=== PATIENT | female | born 1985 | race Caucasian/White ===

== ENCOUNTER 2021-04-16 00:46 | Inpatient (IN) | payer OTHER ==
[~2021-04-16 00:46] MED LIST: BENTYL10 MG PO; DICLOFENAC SODI75 MG PO; METRONIDAZOLE500 MG PO; PEPCID AC20 MG PO; PHENERGAN25 M1 PO; REGLAN10 MG PO
[2021-04-16 01:30] LABS: BASOPHIL 0.2 % (0-2); EOSINOPHIL 0.1 % (0-5); HCT 35.2 % (37.0-47.0); HGB 12.2 g/dl (12.5-16.0); LYMPHOCYTE 5.7 % (15-48); MCH 28.4 pg (25.0-31.0); MCHC 34.7 g/dL (32.0-36.0); MCV 81.9 fL (78.0-100.0); MONOCYTE 12.5 % (0-12); MPV 11.2 fL (6.0-9.5); NRBC 0; PLT 180 K/uL (150-400); RDW 13.5 % (11.5-14.0); WBC 16.8 K/uL (4.0-10.5)
[2021-04-16 01:45] LABS: ALBUMIN 2.8 g/dL (3.4-5.0); BILIRUBIN - TOTAL 1.4 mg/dL (0.2-1.0); BUN/CREAT RATIO (CALC) 9.9 RATIO; CREATININE 0.91 mg/dL (0.51-0.95); POTASSIUM 3.3 mmol/L (3.5-5.1); TOTAL PROTEIN 7.8 g/dL (6.4-8.2)
[2021-04-16 01:47] LABS: LACTIC ACID 1.7 mmol/L (0.4-1.9)
[2021-04-16 02:10] LABS: CORONAVIRUS 2019 SARS-COV-2 NEGATIVE (NEGATIVE); INFLUENZA A NAA NEGATIVE (NEGATIVE)
[2021-04-16 02:11] LABS: BILIRUBIN 1+ mg/dL (NEGATIVE); BLOOD 1+ Ery/uL (NEGATIVE); CLARITY CLOUDY (CLEAR); COLOR YELLOW (YELLOW); GLUCOSE (U) NORMAL (NORMAL); LEUKOCYTES 3+ Leu/uL (NEGATIVE); NITRITE POSITIVE (NEGATIVE); PROTEIN 2+ mg/dL (NEGATIVE); SPECIFIC GRAVITY <=1.005 (1.001-1.030)
[2021-04-16 02:15] LABS: URINARY WBC TNTC
[2021-04-16 02:16] LABS: BACTERIA 4+; SQUAMOUS EPITHELIAL CELLS 20-50
[2021-04-16 03:29] LABS: MAGNESIUM 1.5 mg/dL (1.8-2.4); PHOSPHORUS 2.6 mg/dL (2.6-4.7)
[2021-04-16] MEDS ORDERED: KEPPRA1000 MG PO (03:50)
--- NOTE | 2021-04-17 03:17 | NUR ---
When providing patient care with total bath and linen change noted sores over breasts, on abdomen, and legs with few on arms. Patient stated they are there often. Marino Braxton infomred. Patient placed in contact isolation.
[2021-04-17 06:20] LABS: BASOPHIL 0.3 % (0-2); EOSINOPHIL 0.5 % (0-5); HCT 32.1 % (37.0-47.0); HGB 10.5 g/dl (12.5-16.0); LYMPHOCYTE 8.9 % (15-48); MCH 28.5 pg (25.0-31.0); MCHC 32.7 g/dL (32.0-36.0); MONOCYTE 7.5 % (0-12); MPV 12.5 fL (6.0-9.5); NEUTROPHIL 82.3 % (41-80); NRBC 0; PLT 150 K/uL (150-400); RBC 3.68 M/uL (4.20-5.40); RDW 14.2 % (11.5-14.0); WBC 13.1 K/uL (4.0-10.5)
[2021-04-17 06:38] LABS: MCV 87.2 fL (78.0-100.0)
[2021-04-17 06:43] LABS: ALBUMIN 2.1 g/dL (3.4-5.0); BILIRUBIN - TOTAL 0.8 mg/dL (0.2-1.0); BUN/CREAT RATIO (CALC) 12.6 RATIO; CREATININE 1.03 mg/dL (0.51-0.95); GLOBULIN (CALCULATION) 4.4 g/dL; POTASSIUM 4.7 mmol/L (3.5-5.1); TOTAL PROTEIN 6.5 g/dL (6.4-8.2)
[2021-04-17 08:11] LABS: HBSAG SCREEN Negative (Negative); HEP A AB, IGM Negative (Negative); HEP B CORE AB, IGM Negative (Negative); HEP C VIRUS AB 3.1 (0.0-0.9)
--- NOTE | 2021-04-17 14:37 | NUR ---
PER ROUNDING DR. MORRISON STATED THAT THE PT. NEEDED 2 MORE DAYS [facility] AND WOULD GO HOME TUESDAY OR TUESDAY.
--- NOTE | 2021-04-17 15:28 | NUR ---
MET WITH PT. GAVE HER INFORMATION REGARDING [facility] IN [place]. SHE REQUESTED INFORMATION REGARDING THE PSY[facility]IATRY CLINIC AT IN [place]. GAVE PT. INFORMATION REGARDING THE CLINIC. PT. STATED THAT SHE USE TO GO TO THE [facility] AND WOULD LIKE TO RETURN.
--- NOTE | 2021-04-18 00:42 | NUR ---
0015 Patient has been on the phone with boyfriend during night and arguing, with loud tones and cursing. Repeated asked patient to lower her voice while on the phone. Patient becoming more upset and yelling on phone. Also discussed boyfriend coming to visit now. Informed patient this would not be a good idea related to the time and the emotions that are on display at this time. picking crew supervisor informed of situation and called front outdoor recreation specialist to instruct that patient could have no visitor tonight. picking crew supervisor and security discussed this with patient and also discussed the need to try and no talk with those who are upsetting her and to keep a low tone related to the patients which are in close proximity to room. Patient stated understanding and also said boyfriend was told to stay home and come tomorrow.
[2021-04-18 04:05] LABS: BASOPHIL 0.3 % (0-2); EOSINOPHIL 1.4 % (0-5); HCT 29.2 % (37.0-47.0); HGB 9.7 g/dl (12.5-16.0); LYMPHOCYTE 9.5 % (15-48); MCH 28.6 pg (25.0-31.0); MCHC 33.2 g/dL (32.0-36.0); MCV 86.1 fL (78.0-100.0); MONOCYTE 8.8 % (0-12); MPV 11.4 fL (6.0-9.5); NEUTROPHIL 79.3 % (41-80); NRBC 0; PLT 144 K/uL (150-400); RBC 3.39 M/uL (4.20-5.40); RDW 14.2 % (11.5-14.0); WBC 7.4 K/uL (4.0-10.5)
[2021-04-18 04:24] LABS: ALBUMIN 2.3 g/dL (3.4-5.0); BILIRUBIN - TOTAL 0.4 mg/dL (0.2-1.0); BUN/CREAT RATIO (CALC) 11.2 RATIO; CREATININE 0.98 mg/dL (0.51-0.95); GLOBULIN (CALCULATION) 4.6 g/dL; POTASSIUM 4.2 mmol/L (3.5-5.1); TOTAL PROTEIN 6.9 g/dL (6.4-8.2)
[2021-04-18] MEDS ORDERED: SEROQUEL 100MG100 MG PO (10:01)
[2021-04-18] MEDS ORDERED: NORCO 5-325 TA1 EACH PO ×2 (10:01→10:07)
[2021-04-18] MEDS ORDERED: QUETIAPINE FUMA50 M1 PO (10:01)
[2021-04-18] MEDS ORDERED: LEVAQUIN750 MG PO (10:02)
--- NOTE | 2021-04-20 08:13 | NUR ---
TELEPHONE CALL FROM LAB REGARDING PATIENT HEPATITIS C VIRUS ANTIBODY LEVEL OF 3.1. FILLED OUT LAB NOTIFICATION FORM AND SPOKE WITH DR KIRKLAND ABOUT LAB RESULTS. PER REQUEST FROM DR KIRKLAND, LAB RESULT FAXED TO PATIENT'S PCP, AREN FRANKLIN APRN. DR KIRKLAND TO NOTIFY PATIENT OF LAB RESULT
== END 2021-04-18 12:45 | disposition home or self-care (01) | DRG 871 ==
LOC: FER 00:46 → FMS 02:46
PROVIDERS: Allergy & Immunology Allergy; Emergency Medicine; Nurse Practitioner; ADMIT Internal Medicine
DX: A41.9 Sepsis, unspecified organism (principal); G92 Toxic encephalopathy; N30.01 Acute cystitis with hematuria; N10 Acute pyelonephritis; F05 Delirium due to known physiological condition; Z20.822 Contact with and (suspected) exposure to COVID-19; G40.909 Epilepsy, unspecified, not intractable, without status epilepticus; B19.20 Unspecified viral hepatitis C without hepatic coma; F41.9 Anxiety disorder, unspecified; I95.9 Hypotension, unspecified; F31.9 Bipolar disorder, unspecified; F20.9 Schizophrenia, unspecified; Z88.0 Allergy status to penicillin; Z88.8 Allergy status to other drugs, medicaments and biological substances; Z79.899 Other long term (current) drug therapy; Z90.49 Acquired absence of other specified parts of digestive tract; Z86.19 Personal history of other infectious and parasitic diseases
CPT/HCPCS: 36415; 70450; 71045; 80053; 80074; 80170; 80299; 81001; 82150; 83605; 83735; 84100; 84145; 84484; 85025; 87040; 87076; 87077; 87088; 87186; 87521; 93005; 94010; C9113; J0696; J0780; J1200; J1580; J1885; J2405; J3475; J7030; J7120; Q9967; U0002

== ENCOUNTER 2021-06-22 21:43 | Emergency (ER) | payer OTHER ==
[~2021-06-22 21:43] MED LIST changes: +KEPPRA1000 MG PO; +LEVAQUIN750 MG PO; +NORCO 5-325 TA1 EACH PO; +QUETIAPINE FUMA50 M1 PO; +SEROQUEL 100MG100 MG PO
[2021-06-22] MEDS ORDERED: CEFDINIR300 MG PO (23:53)
[2021-06-23 01:34] LABS: BILIRUBIN NEGATIVE (NEGATIVE); BLOOD 3+ Ery/uL (NEGATIVE); CLARITY CLOUDY (CLEAR); COLOR YELLOW (YELLOW); GLUCOSE (U) NORMAL (NORMAL); LEUKOCYTES 2+ Leu/uL (NEGATIVE); NITRITE NEGATIVE (NEGATIVE); PROTEIN 1+ mg/dL (NEGATIVE); SPECIFIC GRAVITY >=1.030 (1.001-1.030); UROBILINOGEN 0.2 mg/dL (0.2-1.0)
[2021-06-23 01:37] LABS: BACTERIA 4+; SQUAMOUS EPITHELIAL CELLS 20-50; URINARY WBC TNTC
[2021-06-23] MEDS ORDERED: MACROBID100 MG PO (02:32)
== END 2021-06-23 04:49 | disposition home or self-care (01) ==
LOC: FER 21:43
PROVIDERS: Emergency Medicine
DX: S50.812A Abrasion of left forearm, initial encounter (principal); N39.0 Urinary tract infection, site not specified; Z23 Encounter for immunization; X99.1XXA Assault by knife, initial encounter; Y92.009 Unspecified place in unspecified non-institutional (private) residence as the place of occurrence of the external cause
CPT/HCPCS: 73110; 73130; 81001; 90471; 90715

== ENCOUNTER 2022-06-24 19:16 | Emergency (ER) | payer OTHER ==
[~2022-06-24 19:16] MED LIST changes: +CEFDINIR300 MG PO; +MACROBID100 MG PO
[2022-06-24 20:43] LABS: BASOPHIL 0.5 % (0-2); HCT 35.1 % (37.0-47.0); HGB 11.3 g/dl (12.5-16.0); LYMPHOCYTE 28.6 % (15-48); MCHC 32.2 g/dL (32.0-36.0); MCV 90.2 fL (78.0-100.0); MONOCYTE 7.1 % (0-12); MPV 12.1 fL (6.0-9.5); NEUTROPHIL 62.3 % (41-80); NRBC 0; PLT 144 K/uL (150-400); RBC 3.89 M/uL (4.20-5.40); RDW 14.5 % (11.5-14.0); WBC 6.2 K/uL (4.0-10.5)
[2022-06-24 21:05] LABS: ALBUMIN 3.7 g/dL (3.4-5.0); BILIRUBIN - TOTAL 0.3 mg/dL (0.2-1.0); BUN/CREAT RATIO (CALC) 21.4 RATIO; CREATININE 0.98 mg/dL (0.51-0.95); GLOBULIN (CALCULATION) 3.4 g/dL; POTASSIUM 3.8 mmol/L (3.5-5.1); TOTAL PROTEIN 7.1 g/dL (6.4-8.2)
[2022-06-24 22:42] LABS: BILIRUBIN NEGATIVE (NEGATIVE); BLOOD NEGATIVE Ery/uL (NEGATIVE); CLARITY CLEAR (CLEAR); COLOR YELLOW (YELLOW); GLUCOSE (U) NORMAL (NORMAL); LEUKOCYTES NEGATIVE Leu/uL (NEGATIVE); NITRITE NEGATIVE (NEGATIVE); PROTEIN TRACE (LOW) mg/dL (NEGATIVE); SPECIFIC GRAVITY 1.025 (1.001-1.030)
[2022-06-24 22:50] LABS: AMPHETAMINES NEGATIVE (NEGATIVE); BARBITURATES NEGATIVE (NEGATIVE); ECSTASY (MDMA) NEGATIVE (NEGATIVE); MARIJUANA (THC) NEGATIVE (NEGATIVE); METHADONE NEGATIVE (NEGATIVE); OPIATES NEGATIVE (NEGATIVE); OXYCODONE NEGATIVE (NEGATIVE)
[2022-06-24 23:05] LABS: BACTERIA 1+; URINARY RBC RARE; YEAST PRESENT
[2022-06-25] MEDS ORDERED: SEROQUEL50 MG PO (00:25)
[2022-06-25] MEDS ORDERED: KEPPRA1000 MG PO (00:25)
[2022-06-29 00:08] LABS: HBSAG SCREEN Negative (Negative); HCV AB 3.5 (0.0-0.9); HEP A AB, IGM Negative (Negative); HEP B CORE AB, IGM Negative (Negative); HEPATITIS C QUANTITATION HCV Not Detected IU/mL (.)
== END 2022-06-25 01:00 | disposition home or self-care (01) ==
LOC: FER 19:16
PROVIDERS: Emergency Medicine
DX: G40.409 Other generalized epilepsy and epileptic syndromes, not intractable, without status epilepticus (principal); S90.32XA Contusion of left foot, initial encounter; S60.221A Contusion of right hand, initial encounter; Z88.0 Allergy status to penicillin; Z88.8 Allergy status to other drugs, medicaments and biological substances; Z79.899 Other long term (current) drug therapy; X58.XXXA Exposure to other specified factors, initial encounter; Y92.149 Unspecified place in prison as the place of occurrence of the external cause
CPT/HCPCS: 36415; 70450; 73130; 73650; 80053; 80305; 81001; 83605; 85025; 87088; J1170; J1885; J1953; J2405; J2550; Q0162